=== PATIENT | female | born 1940 | race Caucasian/White ===

== ENCOUNTER 2017-11-25 04:08 | Observation (INO) | payer OTHER ==
--- NOTE | 2017-11-25 04:18 | PDOC ---
Attending Attestation - Resident Resident Name: Imani Pablo - ED Attending Attestation I have performed the following: I have examined & evaluated the patient, The case was reviewed & discussed with the resident, I agree w/resident's findings & plan - HPI HPI: 11/25/17 06:18 Pt was found on the ground by katherine , when her dog began barking wildly after she presumably passed out. Pt didn't eat dinner however she took all her DM meds: levemir; januvia; metformin; glypizide. EMS was called, and when they arrived at the pt's house, they found her glucometer read was 2. Oral glc was given; pt was scooped and brought to ER. Here IV immediately placed and D50 given. Pt woke up. She was also placed on NRB 100% O2 mask. - Physicial Exam PE: 11/25/17 06:23 Agree with resident exam. Pt has no rashes or bruises; abd soft; lungs clear. HR tachy on arrival -with hydration HR came down. - Medical Decision Making 11/25/17 04:42 Blood sugar is 224 at this moment, by bedside glucometer. 11/25/17 06:26 Pt's labs are normal. GLC returned at 36; however that was before the D50 IV; pt 's fingerstick was 224. She is awake and alert and speaking to her . 11/25/17 06:27 Pt has a UTI and we will treat with ceftriaxone IV She will be admitted. Heart Score/ECG Review - Electrocardiogram EKG: Normal - Age Age: >/= 65 - Risk Factors Risk Factors Heart Score: Yes Hx Hypercholesterolemia, Yes Hx Hypertension, Yes Hx Diabetes Based on the list above the patient has:: >/=3 risk factors or Hx atherosclerotic disease - ECG Intrepretation Rhythm: Regular Rhythm - [place]: Normal - ECG Impressions Normal ECG: Yes Bradycardia: Yes
[2017-11-25 04:58] LABS: BASO % 0.6 % (0-2.0); EOS % 3.1 % (0-4.5); HEMATOCRIT 41.4 % (32.4-45.2); HEMOGLOBIN 13.7 GM/dL (10.7-15.3); LYMPH % 38.8 % (8-40); MCH 29.5 pg (25.7-33.7); MCHC 32.9 g/dl (32.0-36.0); MEAN CELL VOLUME 89.5 fl (80-96); MEAN PLT VOLUME 8.2 fl (7.5-11.1); MONO % 8.5 % (3.8-10.2); PLATELET COUNT 244 K/MM3 (134-434); RBC 4.63 M/mm3 (3.60-5.2); RDW 13.7 % (11.6-15.6); WHITE BLOOD COUNT 7.8 K/mm3 (4.0-10.0)
--- NOTE | 2017-11-25 05:03 | PDOC ---
History of Present Illness - General Chief Complaint: Blood Sugar Problem Stated Complaint: DIABETIC SHOCK Time Seen by Provider: 11/25/17 04:15 History Source: Patient Exam Limitations: No Limitations - History of Present Illness Initial Comments: 11/25/17 04:40 77 year old with history of early dementia, HTN, HLD, triple CABG (1998) and DM who presents after being found sitting in couch, unresponsive and "soaked in sweat" by her . The patient's glucose was 2 as checked by her . Upon EMS arrival glucose was at 22. Patient takes 28 units of insulin at 2300 every night. Today the patient only ate breakfast around 0900 but had not eaten anything the entire day, yet still took her nightly insulin. Denies any recent travel or long flights. Denies recent fever or sick contacts. Denies nausea, vomiting, diarrhea or constipation. The patient denies any current chest pain, shortness of breath, abdominal pain. The patient takes plavix and ASA but no other anti-coagulants. En route to the ED, oral glucose was given to the patient. PMHX: as in HPI PSHX: as in HPI Meds: see below Allergies: none Tob: none Etoh: none Rec Drugs: none PCP: Constanza Linares Past History - Past Medical History Allergies/Adverse Reactions: Allergies Allergy/AdvReac Type Severity Reaction Status Date / Time No Known Allergies Allergy Verified 11/25/17 04:27 Home Medications: Ambulatory Orders Aspirin [Aspirin EC] 81 mg PO DAILY 08/01/14 Brimonidine Tartrate/Timolol [Combigan Eye Drops] 5 ml OP BID 08/01/14 Cephalexin Monohydrate [Keflex -] 500 mg PO BID #14 capsule 08/01/14 Glipizide [Glipizide ER] 10 mg PO BID 08/01/14 Irbesartan 150 mg PO DAILY 08/01/14 Metformin HCl [Metformin HCl ER] 1,000 mg PO BID 08/01/14 Metoprolol Succinate [Toprol Xl -] 50 mg PO DAILY 08/01/14 Nitroglycerin Sublingual [Nitrostat -] 0.4 mg SL PRN 08/01/14 Simvastatin [Zocor -] 40 mg PO HS 08/01/14 Sitagliptin Phosphate [Januvia] 100 mg PO DAILY 08/01/14 Acetaminophen W/ Codeine #3 [Tylenol # 3 -] 1 tab PO Q6H PRN #10 tablet Diabetes: Yes HTN: Yes Hypercholesterolemia: Yes - Suicide/Smoking/Psychosocial Hx Smoking History: Unknown if ever smoked Have you smoked in the past 12 months: No Information on smoking cessation initiated: No Hx Alcohol Use: No Drug/Substance Use Hx: No Substance Use Type: None *Physical Exam - Vital Signs Last Vital Signs Temp Pulse Resp BP Pulse Ox 95.4 F L 52 L 22 H 98/46 L 99 11/25/17 04:10 11/25/17 04:10 11/25/17 04:10 11/25/17 04:10 11/25/17 04:10 Heart Score/ECG Review - History History: Moderately suspicious - Electrocardiogram EKG: Normal - Age Age: >/= 65 - Risk Factors Risk Factors Heart Score: Yes Hx Hypercholesterolemia, Yes Hx Hypertension, Yes Hx Diabetes Based on the list above the patient has:: >/=3 risk factors or Hx atherosclerotic disease - Troponin Troponin: </= normal limit - Score Heart Score - Total: 5 ED Treatment Course - LABORATORY CBC & Chemistry Diagram: 11/25/17 04:40 11/25/17 04:40 Medical Decision Making - Medical Decision Making 77 year old with history of early dementia, HTN, HLD, triple CABG (1998) and DM who presents after being found sitting in couch, unresponsive and "soaked in sweat" by her . The patient's glucose was 2 as checked by her . Upon EMS arrival glucose was at 22. Patient takes 28 units of insulin at 2300 every night. Today the patient only ate breakfast around 0900 but had not eaten anything the entire day, yet still took her nightly insulin. DDX including but not limited to: ACS vs hypoglycemia vs CVA/TIA vs PNA vs UTI vs electrolyte abnormalities W/U: - Head CT - cbc, cmp, trop, PT/INR, PTT, BNP - CXR - EKG TX: - D50 - NS Scores: Heart: 5 ED Course: D50 administered upon arrival. EKG: sinus marie rhythm HR 55, no interval abnormalities, narrow QRS, ST and T wave segments and morphology normal. No T wave abnormalities. QTc at 470 11/25/17 05:03 Repeat glucose at 228 Patient at baseline much improved as compared to initial presentation. Mentating and holding normal conversation. UA: + nitrites 1gm Rocephin given Patient with significant cardiac history and heart score of 5 and with unknown cause of syncope, patient will need further treatment and evaluating. Trop: negative. Medicine team contacted for admission to tele obs for syncope r/o ACS 11/25/17 06:26 11/25/17 06:27 *DC/Admit/Observation/Transfer - Discharge Dispostion Condition at time of disposition: Guarded - Referrals Referrals: ON STAFF,NOT [Primary Care Provider] - - Patient Instructions - Post Discharge Activity
[2017-11-25 05:34] LABS: INR 0.96 (0.83-1.09); PROTHROMBIN TIME (PATIENT) 11.3 SEC (9.7-13.0)
[2017-11-25 05:51] LABS: ALBUMIN 3.9 g/dl (3.4-5.0); ALK PHOS 110 U/L (45-117); ANION GAP 9 MMOL/L (8-16); BILIRUBIN,TOTAL 0.8 mg/dL (0.2-1); BLOOD UREA NITROGEN 19 mg/dL (7-18); CALCIUM 9.6 mg/dL (8.5-10.1); CHLORIDE 107 mmol/L (98-107); CO2 27 mmol/L (21-32); SGOT/AST 25 U/L (15-37); SGPT/ALT 28 U/L (13-61); SODIUM 143 mmol/L (136-145); TOT PROT 7.6 g/dl (6.4-8.2)
[2017-11-25 05:53] LABS: GLUCOSE,RANDOM 36 mg/dL (74-106)
[2017-11-25] MEDS ORDERED: SODIUM CHLORIDE 1,000 ML IV SCH (06:00)
[2017-11-25 06:05] LABS: URINE APPEARANCE CLEAR; URINE BILIRUBIN NEGATIVE (<2.0 mg/dL); URINE COLOR LTYELLOW; URINE GLUCOSE (UA) 1+ (NEGATIVE); URINE KETONE NEGATIVE (NEGATIVE); URINE LEUK ESTERASE TRACE (NEGATIVE); URINE NITRITE POSITIVE (NEGATIVE); URINE PROTEIN NEGATIVE (NEGATIVE); URINE UROBILINOGEN NEGATIVE mg/dL (0.2-1.0)
[2017-11-25] MEDS ORDERED: CEFTRIAXONE 1,000 MG in DEXTROSE 5%-WATER - 50 ML IVPB ONE (06:15)
[2017-11-25 06:28] LABS: EPI CELLS RARE /HPF (FEW); URINE BACTERIA MODERATE /hpf (NONE SEEN); URINE HYALINE CAST 6 /lpf; URINE MUCUS RARE
[2017-11-25] MEDS ORDERED: CEFTRIAXONE 1 GM/50 ML BAG ONE (06:56)
--- NOTE | 2017-11-25 08:02 | HP ---
CHIEF COMPLAINT: PCP: Dr. Vijay Apodaca HISTORY OF PRESENT ILLNESS: Patient is a 77 year old female was brought to the ED via EMS accompanied with her after she was found unresponsive this morning at 3am. As per the , she was apparently well until 11:30 pm last night when she went to bed. In the morning at 3am, he heard dogs barking, went in to the living room, saw his unresponsive in the couch. He checked her sugar via Dexcom (sugar sensor) and it was 2. On EMS arrival, her sugar was 22, was given oral glucose on the way to the ED. Her Sugar was found to be 36 mg/dl in the ED. As per the patient, she took her medications yesterday (Levemir 28 U, Metformin 1000 mg BID, Glipizide 10mg PO BID), only had breakfast in the morning and a small piece of apple pie for dinner at 9pm. Patient states her sugar at 11:30 pm last night was 239 mg/dl, usually ranges between 130's -200's. Never had hypoglycemic episodes in the past. Was diagnosed to have DM-II 3 yrs ago, hasn' t changed any medications recently. Denies chest pain, sob, cough, palpitation, abdominal pain, nausea, vomiting, headache, seizure, tingling, numbness or any focal neurological deficits. Has been taking Namenda and Donepezil for memory loss. But she is still independent, able to cook and pay her bills. Bowel/Bladder habit normal. No urinary symptoms. Sleep normal. Decreased PO intake since few days. ER course was notable for: (1) Afebrile, Bradycardic to 52 bpm, no leukocytosis, RBS 36 mg/dl (2) EKG: NSR, bradycardia (3) D50, IVF Recent Travel: None PAST MEDICAL HISTORY: Hypertension, Hyperlipidemia, DM (Dx 3 yrs ago), Memory loss, Triple by pass in 1998 PAST SURGICAL HISTORY: As mentioned above. Social History: Smoking: Denies Alcohol: Occasional, last drink a week ago (1 drink) Drugs: Denies Family History: Father of [place] at [place] 40 from [place]; Mother- . 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 Allergies No Known Allergies Allergy (Verified 11/25/17 04:27) HOME MEDICATIONS: Home Medications Medication Instructions Recorded Aspirin [Aspirin EC] 81 mg PO DAILY 08/01/14 Brimonidine Tartrate/Timolol 5 ml OP BID 08/01/14 [Combigan Eye Drops] Glipizide [Glipizide ER] 10 mg PO BID 08/01/14 Irbesartan 150 mg PO DAILY 08/01/14 Metformin HCl [Metformin HCl ER] 1,000 mg PO BID 08/01/14 Metoprolol Succinate [Toprol Xl -] 50 mg PO DAILY 08/01/14 Nitroglycerin Sublingual 0.4 mg SL PRN 08/01/14 [Nitrostat -] Simvastatin [Zocor -] 40 mg PO HS 08/01/14 Sitagliptin Phosphate [Januvia] 100 mg PO DAILY 08/01/14 Acetaminophen W/ Codeine #3 1 tab PO Q6H PRN #10 tablet 10/10/14 [Tylenol # 3 -] REVIEW OF SYSTEMS CONSTITUTIONAL: Absent: fever, chills, diaphoresis, generalized weakness, malaise, loss of appetite, weight change HEENT: Absent: rhinorrhea, nasal congestion, throat pain, throat swelling, difficulty swallowing, mouth swelling, ear pain, eye pain, visual changes CARDIOVASCULAR: Absent: chest pain, syncope, palpitations, irregular heart rate, lightheadedness , peripheral edema RESPIRATORY: Absent: cough, shortness of breath, dyspnea with exertion, orthopnea, wheezing, stridor, hemoptysis GASTROINTESTINAL: Absent: abdominal pain, abdominal distension, nausea, vomiting, diarrhea, constipation, melena, hematochezia GENITOURINARY: Absent: dysuria, frequency, urgency, hesitancy, hematuria, flank pain, genital pain MUSCULOSKELETAL: Absent: myalgia, arthralgia, joint swelling, back pain, neck pain SKIN: Absent: rash, itching, pallor HEMATOLOGIC/IMMUNOLOGIC: Absent: easy bleeding, easy bruising, lymphadenopathy, frequent infections ENDOCRINE: Absent: unexplained weight gain, unexplained weight loss, heat intolerance, cold intolerance NEUROLOGIC: Present: Altered mental status Absent: headache, focal weakness or paresthesias, dizziness, unsteady gait, seizure, bladder or bowel incontinence PSYCHIATRIC: Absent: anxiety, depression, suicidal or homicidal ideation, hallucinations. PHYSICAL EXAMINATION Vital Signs - 24 hr 11/25/17 04:10 Temperature 95.4 F L Pulse Rate 52 L Respiratory 22 H Rate Blood Pressure 98/46 L O2 Sat by Pulse 99 Oximetry (%) GENERAL: Elderly female, lying comfortably in bed, Awake, alert, and oriented to place, person (not oriented to year) in no acute distress. HEAD: Normal with no signs of trauma. EYES: EOM intact, no pallor or icterus. EARS, NOSE, THROAT: Ears normal. Moist mucous membranes. NECK: Supple. LUNGS: Breath sounds equal, clear to auscultation bilaterally. No wheezes, and no crackles. No accessory muscle use. HEART: Regular rate and rhythm, normal S1 and S2 without murmur. ABDOMEN: Soft, nontender, no organomegaly. MUSCULOSKELETAL: Normal range of motion at all joints. No bony deformities or tenderness. No CVA tenderness. UPPER EXTREMITIES: 2+ pulses, warm, well-perfused. No cyanosis. No clubbing. No peripheral edema. LOWER EXTREMITIES: scar on the left le (likely from previous bypass surgery) 2+ pulses, warm, well-perfused. No calf tenderness. No peripheral edema. NEUROLOGICAL: No facial droop, power 5/5 in all extremities. Cranial nerves II- XII intact. Normal speech. Gait not observed. PSYCHIATRIC: Cooperative. Good eye contact. Appropriate mood and affect. SKIN: Warm, dry, normal turgor, no rashes or lesions noted, normal capillary refill. Laboratory Results - last 24 hr 11/25/17 11/25/17 11/25/17 04:40 04:40 04:40 WBC 7.8 RBC 4.63 Hgb 13.7 Hct 41.4 MCV 89.5 MCH 29.5 MCHC 32.9 RDW 13.7 Plt Count 244 MPV 8.2 Absolute Neuts (auto) 3.8 Neutrophils % 49.0 Lymphocytes % 38.8 Monocytes % 8.5 Eosinophils % 3.1 Basophils % 0.6 Nucleated RBC % 0 PT with INR 11.30 INR 0.96 PTT (Actin FS) 30.7 Sodium Potassium Chloride Carbon Dioxide Anion Gap BUN Creatinine Creat Clearance w eGFR POC Glucometer Random Glucose Calcium Total Bilirubin AST ALT Alkaline Phosphatase Creatine Kinase Troponin I B-Natriuretic Peptide Total Protein Albumin Urine Color Urine Appearance Urine pH Ur Specific Oliver Urine Protein Urine Glucose (UA) Urine Ketones Urine Blood Urine Nitrite Urine Bilirubin Urine Urobilinogen Ur Leukocyte Esterase Urine WBC (Auto) Urine RBC (Auto) Ur Epithelial Cells Urine Bacteria Hyaline Casts Urine Mucus Blood Type Antibody Screen 11/25/17 11/25/17 11/25/17 04:40 04:40 04:41 WBC RBC Hgb Hct MCV MCH MCHC RDW Plt Count MPV Absolute Neuts (auto) Neutrophils % Lymphocytes % Monocytes % Eosinophils % Basophils % Nucleated RBC % PT with INR INR PTT (Actin FS) Sodium 143 Potassium 4.0 Chloride 107 Carbon Dioxide 27 Anion Gap 9 BUN 19 H Creatinine 1.0 Creat Clearance w eGFR 53.48 POC Glucometer [phone] Random Glucose 36 L* Calcium 9.6 Total Bilirubin 0.8 AST 25 ALT 28 Alkaline Phosphatase 110 Creatine Kinase 50 Troponin I < 0.02 B-Natriuretic Peptide Total Protein 7.6 Albumin 3.9 Urine Color Urine Appearance Urine pH Ur Specific Oliver Urine Protein Urine Glucose (UA) Urine Ketones Urine Blood Urine Nitrite Urine Bilirubin Urine Urobilinogen Ur Leukocyte Esterase Urine WBC (Auto) Urine RBC (Auto) Ur Epithelial Cells Urine Bacteria Hyaline Casts Urine Mucus Blood Type O POSITIVE Antibody Screen Negative 11/25/17 11/25/17 05:31 07:28 WBC RBC Hgb Hct MCV MCH MCHC RDW Plt Count MPV Absolute Neuts (auto) Neutrophils % Lymphocytes % Monocytes % Eosinophils % Basophils % Nucleated RBC % PT with INR INR PTT (Actin FS) Sodium Potassium Chloride Carbon Dioxide Anion Gap BUN Creatinine Creat Clearance w eGFR POC Glucometer Random Glucose Calcium Total Bilirubin AST ALT Alkaline Phosphatase Creatine Kinase Troponin I B-Natriuretic Peptide 583.4 H Total Protein Albumin Urine Color Ltyellow Urine Appearance Clear Urine pH 5.0 Ur Specific Oliver 1.013 Urine Protein Negative Urine Glucose (UA) 1+ H Urine Ketones Negative Urine Blood Negative Urine Nitrite Positive Urine Bilirubin Negative Urine Urobilinogen Negative Ur Leukocyte Esterase Trace Urine WBC (Auto) 3 Urine RBC (Auto) <1 Ur Epithelial Cells Rare Urine Bacteria Moderate Hyaline Casts 6 Urine Mucus Rare Blood Type Antibody Screen ASSESSMENT/PLAN: Patient is a 77 year old female with significant past medical history of Hypertension, Hyperlipidemia, DM (Dx 3 yrs ago), Memory loss, Triple by pass in 1998 admitted for evaluation of altered mental status secondary to hypoglycemia. # Altered mental status likely secondary to hypoglycemia Patient on Levemir and oral hypoglycemic drugs (compliant), had poor oral intake x 1 day, was found to have sugar of 2 AMS resolved completely after she was treated with oral glucose and IV Dextrose. Presyncope- unlikely cardiac in origin. EKG NSR bradycardia (do not have previous EKG to compare) (troponin x 1 negative, will do another set of troponin) On arrival, she was afebrile, hemodynamically stable Admitted in Tele for continuous cardiac monitoring (check for arrythmias) A1c ordered, result pending Hold Metformin, Glipizide and Levemir for now. Finger stick Q2H followed by Q4H Insulin sliding scale-cover with Insulin only if Sugar is > 200 mg/dl Watch for hypoglycemic episodes Educated about diabetic diet. Recommended to see an Janitorial Cleaner and a business case analyst Dr. Ingram consult requested. # Hypertension-controlled Continue Metoprolol 50mg PO daily Changed Irbesartan (NF) 75 mg to Losartan 25 mg PO daily (confirmed dose with the pharmacy) # CAD s/p Triple bypass Continue Aspirin 81mg # Memory loss Continue Namenda 28 mg PO Daily and Donepezil 10mg PO daily # HLD Continue Atorvastatin 20 mg PO Daily (Takes Simvastatin 40mg(NF) at home) # FEN Not on IV fluids, tolerating PO Electrolytes WNL Diabetic diet # Prophylaxis For DVT: On Heparin 5000 IU sq TID For GI: Not indicated # Code Status: Full Code # Dispo: Admitted in Tele/obs. If sugar improves, there is a possibility of being discharged tomorrow. Illness, Investigation and Plan of care explained to the patient and her . They verbalized understanding. Case discussed with Dr. White. Visit type - Emergency Visit Emergency Visit: Yes ED Registration Date: 11/25/17 Care time: The patient presented to the Emergency Department on the above date and was hospitalized for further evaluation of their emergent condition. - New Patient This patient is new to me today: Yes Date on this admission: 11/25/17 - Critical Care Critical Care patient: No
[2017-11-25] MEDS ORDERED: NITROGLYCERIN SUBLINGUAL 1/150 0.4 MG TAB SL SCH (08:30)
[2017-11-25] MEDS ORDERED: sitaGLIPtin PHOSPHATE 100 MG TABLET (FP) PO SCH (10:00)
[2017-11-25] MEDS ORDERED: ASPIRIN COATED 81 MG TABLET.EC PO SCH (10:00)
[2017-11-25] MEDS ORDERED: PATIENT'S OWN MEDICATION (NON-FORMULARY) (Memantine Hcl [Namenda Xr] 28 MG) PO SCH (10:00)
[2017-11-25] MEDS ORDERED: LOSARTAN POTASSIUM 25 MG TABLET PO SCH (10:00)
[2017-11-25] MEDS ORDERED: PATIENT'S OWN MEDICATION (NON-FORMULARY) (Brimonidine Tartrate/Timolol [Combigan 0.2%-0.5% OP SCH (10:00)
[2017-11-25] MEDS ORDERED: PATIENT'S OWN MEDICATION (NON-FORMULARY) (Irbesartan [Irbesartan] 150 MG) PO SCH (10:00)
[2017-11-25] MEDS: HEPARIN NA (PORCINE) 5,000 UNITS/ML 1ML VIAL SQ SCH ×3 (10:20→21:58)
[2017-11-25] MEDS: ASPIRIN COATED 81 MG TABLET.EC PO SCH (10:20)
[2017-11-25] MEDS ORDERED: ASPIRIN COATED 81 MG TABLET.EC ONE (10:50)
[2017-11-25] MEDS ORDERED: HEPARIN NA (PORCINE) 5,000 UNITS/ML 1ML VIAL ONE ×2 (10:50→15:16)
[2017-11-25] MEDS: INSULIN SLIDING SCALE (NOVOLOG) 1 VIAL SQ SCH ×3 (11:00→21:58)
[2017-11-25] MEDS ORDERED: IBUPROFEN 400 MG TABLET (FP) PO ONE (11:58)
--- NOTE | 2017-11-25 12:34 | PN ---
Teaching Attending Note Name of Resident: Sulma Moreira ATTENDING PHYSICIAN STATEMENT Time of evaluation: 9:30 AM I saw and evaluated the patient. I reviewed the resident's note and discussed the case with the resident. I agree with the resident's findings and plan as documented with exceptions below. SUBJECTIVE: 77 yof with PMhx of IDDM,(no recent changes in meds), s/p subcutaneous glucose sensor 3 weeks ago, also CAD s/p CABG 1998, HTN,HLD was found unresponsive by her around 3 AM, with glucose sensor reading 0-2, EMS was called, patient was given oral glucose, brought to ED, Blood glucose 38 s/p D50 with repeat blood glucose 228. Patient gradually woke up and was at her baseline shortly after receiving dextrose in the ED, has been asymptomatic since. She reports taking all her DM meds, including Levemir, Glyburide,metformin, januvia yesterday, had breakfast, but no PO intake since all day, though did take her evening diabetes meds. Denies any fevers, chills, abdominal pain, urinary symptoms, diarrhea, recent URI like illness, decreased PO intake prior to yesterday. No similar prior episodes. Has been stable on her DM meds for years. However reports her blood glucose readings have been erratic ranging from 50s to 300s. Currently awake, appropriate, at bedside, Patient recalls hearing the dog barking, then being in a 'haze', but next thing she remembers was being in the ED. 12 point ROS done, neg except above. OBJECTIVE: Vital Signs Period Temp Pulse Resp BP Sys/Barlow Pulse Ox Last 24 Hr 95.4 F-97.5 F 52-65 18-22 98-161/46-74 99-99 Intake & Output 11/22/17 11/23/17 11/24/17 11/25/17 23:59 23:59 23:59 23:59 Weight 175 lb GENERAL: Awake, alert, and fully oriented, in no acute distress. HEAD: Normal with no signs of trauma. EYES: Pupils equal, round and reactive to light, extraocular movements intact, sclera anicteric, conjunctiva clear. No lid lag. EARS, NOSE, THROAT: Ears normal, nares patent, oropharynx clear without exudates. Moist mucous membranes. NECK: soft, supple,no JVD, no neck tendernesss LUNGS: Breath sounds equal, clear to auscultation bilaterally. No wheezes, and no crackles. No accessory muscle use. HEART: S1S2 regular ABDOMEN: Soft, nontender, not distended, normoactive bowel sounds, no guarding, no rebound, no masses. No hepatomegaly or splenomegaly appreciated. MUSCULOSKELETAL: Normal range of motion at all joints. No bony deformities or tenderness. No CVA tenderness.No spinal tenderness or limitation of ROM noted UPPER EXTREMITIES: 2+ pulses, warm, well-perfused. No cyanosis. No clubbing. No peripheral edema. LOWER EXTREMITIES: 2+ pulses, warm, well-perfused. No calf tenderness. No peripheral edema. NEUROLOGICAL: Cranial nerves II-XII intact. Normal speech. Gait deferred, AAOX3 , PERRL, EOMI, power 5/5, sensation intact symmetric to light touch PSYCHIATRIC: Cooperative. Good eye contact. Appropriate mood and affect. SKIN: Warm, dry, normal turgor, no rashes or lesions noted, normal capillary refill. Home Medications Medication Instructions Recorded Aspirin [Aspirin EC] 81 mg PO DAILY 08/01/14 Brimonidine Tartrate/Timolol 5 ml OP BID 08/01/14 [Combigan Eye Drops] Glipizide [Glipizide ER] 10 mg PO BID 08/01/14 Metformin HCl [Metformin HCl ER] 1,000 mg PO BID 08/01/14 Metoprolol Succinate [Toprol Xl -] 50 mg PO DAILY 08/01/14 Nitroglycerin Sublingual 0.4 mg SL PRN 08/01/14 [Nitrostat -] Simvastatin [Zocor -] 40 mg PO HS 08/01/14 Sitagliptin Phosphate [Januvia] 100 mg PO DAILY 08/01/14 Acetaminophen W/ Codeine #3 1 tab PO Q6H PRN #10 tablet 10/10/14 [Tylenol # 3 -] Aspirin Coated [Ecotrin -] 81 mg PO DAILY 11/25/17 Donepezil HCl 10 mg PO DAILY 11/25/17 Furosemide 40 mg PO DAILY 11/25/17 Insulin (Levemir) [Levemir Vial] 28 unit SQ DAILY 11/25/17 Irbesartan 75 mg PO DAILY 11/25/17 Memantine HCl [Namenda Xr] 28 mg PO DAILY 11/25/17 Active Medications Aspirin (Ecotrin -) 81 mg PO DAILY [facility] Last Admin: 11/25/17 10:20 Dose: 81 mg Atorvastatin Calcium (Lipitor -) 20 mg PO HS [facility] Donepezil HCl (Aricept -) 10 mg PO DAILY [facility] Heparin Sodium (Porcine) (Heparin -) 5,000 unit SQ TID [facility] Last Admin: 11/25/17 10:20 Dose: 5,000 unit Insulin Aspart (Novolog Vial Sliding Scale -) 1 vial SQ ACHS [facility]; Protocol Last Admin: 11/25/17 11:00 Dose: Not Given Losartan Potassium (Cozaar -) 25 mg PO DAILY [facility] Metoprolol Succinate (Toprol Xl -) 50 mg PO DAILY [facility] Last Admin: 11/25/17 10:20 Dose: 50 mg Nitroglycerin (Nitrostat -) 0.4 mg SL PRN [facility] Non-Formulary Medication (Brimonidine Tartrate/Timolol [Combigan 0.2%-0.5% Eye Drops]) 5 ml OP BID [facility] Non-Formulary Medication (Memantine Hcl [Namenda Xr]) 28 mg PO DAILY [facility] Laboratory Results - last 24 hr 11/25/17 11/25/17 11/25/17 04:40 04:40 04:40 WBC 7.8 RBC 4.63 Hgb 13.7 Hct 41.4 MCV 89.5 MCH 29.5 MCHC 32.9 RDW 13.7 Plt Count 244 MPV 8.2 Absolute Neuts (auto) 3.8 Neutrophils % 49.0 Lymphocytes % 38.8 Monocytes % 8.5 Eosinophils % 3.1 Basophils % 0.6 Nucleated RBC % 0 PT with INR 11.30 INR 0.96 PTT (Actin FS) 30.7 Sodium Potassium Chloride Carbon Dioxide Anion Gap BUN Creatinine Creat Clearance w eGFR POC Glucometer Random Glucose Hemoglobin A1c % Calcium Total Bilirubin AST ALT Alkaline Phosphatase Creatine Kinase Troponin I B-Natriuretic Peptide Total Protein Albumin Urine Color Urine Appearance Urine pH Ur Specific Norris Urine Protein Urine Glucose (UA) Urine Ketones Urine Blood Urine Nitrite Urine Bilirubin Urine Urobilinogen Ur Leukocyte Esterase Urine WBC (Auto) Urine RBC (Auto) Ur Epithelial Cells Urine Bacteria Hyaline Casts Urine Mucus Blood Type Antibody Screen 11/25/17 11/25/17 11/25/17 04:40 04:40 04:41 WBC RBC Hgb Hct MCV MCH MCHC RDW Plt Count MPV Absolute Neuts (auto) Neutrophils % Lymphocytes % Monocytes % Eosinophils % Basophils % Nucleated RBC % PT with INR INR PTT (Actin FS) Sodium 143 Potassium 4.0 Chloride 107 Carbon Dioxide 27 Anion Gap 9 BUN 19 H Creatinine 1.0 Creat Clearance w eGFR 53.48 POC Glucometer 228.08336 Random Glucose 36 L* Hemoglobin A1c % Calcium 9.6 Total Bilirubin 0.8 AST 25 ALT 28 Alkaline Phosphatase 110 Creatine Kinase 50 Troponin I < 0.02 B-Natriuretic Peptide Total Protein 7.6 Albumin 3.9 Urine Color Urine Appearance Urine pH Ur Specific Norris Urine Protein Urine Glucose (UA) Urine Ketones Urine Blood Urine Nitrite Urine Bilirubin Urine Urobilinogen Ur Leukocyte Esterase Urine WBC (Auto) Urine RBC (Auto) Ur Epithelial Cells Urine Bacteria Hyaline Casts Urine Mucus Blood Type O POSITIVE Antibody Screen Negative 11/25/17 11/25/17 11/25/17 05:31 07:28 09:29 WBC RBC Hgb Hct MCV MCH MCHC RDW Plt Count MPV Absolute Neuts (auto) Neutrophils % Lymphocytes % Monocytes % Eosinophils % Basophils % Nucleated RBC % PT with INR INR PTT (Actin FS) Sodium Potassium Chloride Carbon Dioxide Anion Gap BUN Creatinine Creat Clearance w eGFR POC Glucometer 92.76912 Random Glucose Hemoglobin A1c % Calcium Total Bilirubin AST ALT Alkaline Phosphatase Creatine Kinase Troponin I B-Natriuretic Peptide 583.4 H Total Protein Albumin Urine Color Ltyellow Urine Appearance Clear Urine pH 5.0 Ur Specific Norris 1.013 Urine Protein Negative Urine Glucose (UA) 1+ H Urine Ketones Negative Urine Blood Negative Urine Nitrite Positive Urine Bilirubin Negative Urine Urobilinogen Negative Ur Leukocyte Esterase Trace Urine WBC (Auto) 3 Urine RBC (Auto) <1 Ur Epithelial Cells Rare Urine Bacteria Moderate Hyaline Casts 6 Urine Mucus Rare Blood Type Antibody Screen 11/25/17 11/25/17 11/25/17 10:40 10:40 10:40 WBC RBC Hgb Hct MCV MCH MCHC RDW Plt Count MPV Absolute Neuts (auto) Neutrophils % Lymphocytes % Monocytes % Eosinophils % Basophils % Nucleated RBC % PT with INR INR PTT (Actin FS) Sodium Potassium Chloride Carbon Dioxide Anion Gap BUN Creatinine Creat Clearance w eGFR POC Glucometer Random Glucose 131 H Hemoglobin A1c % 8.0 H Calcium Total Bilirubin AST ALT Alkaline Phosphatase Creatine Kinase Troponin I 0.02 B-Natriuretic Peptide Total Protein Albumin Urine Color Urine Appearance Urine pH Ur Specific Norris Urine Protein Urine Glucose (UA) Urine Ketones Urine Blood Urine Nitrite Urine Bilirubin Urine Urobilinogen Ur Leukocyte Esterase Urine WBC (Auto) Urine RBC (Auto) Ur Epithelial Cells Urine Bacteria Hyaline Casts Urine Mucus Blood Type Antibody Screen CT brain no acute process CT C-spine degenerative changes, no acute process EKG Sinus marie, T inversion in V1-V2, no prior for comparison CXR - sternal sutures, no acute process ASSESSMENT AND PLAN: 77 yof with PMhx of IDDM,(no recent changes in meds), s/p subcutaneous glucose sensor 3 weeks ago, also CAD s/p CABG 1998, HTN,HLD brought in with severe hypoglycemia -Severe hypoglycemia with unresponsiveness -IDDM, 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 Close glucose checks. ISS for now to start at 200 Endocrine consult, as patient with no prior follow up and gives recent h/o brittle diabetes. Hypoglycemia education. Will provide glucagon on d/c with diabetic education. COntinue home ARB/metoprolol/ASA/statin [id number] Dispo - admit to obs, d/c in 24 hours if no new concerns. Plan discussed with patient and at bedside in detail, all questions answered. Total admit time 55 min.
[2017-11-25] MEDS: LOSARTAN POTASSIUM 25 MG TABLET PO SCH (14:05)
--- NOTE | 2017-11-25 16:04 | CONSULT ---
Consult Consult Specialty:: Endocrinology Referred by:: Sulma Canales MD Reason for Consultation:: Hypoglycemia - History of Present Illness Chief Complaint: Hypoglycemia, AMS History of Present Illness: This is a 77 year old female with h/o T2 DM for around 10 years, on Insulin for 3, HTN, memory impairment who was brought to the ED via EMS accompanied by her after she was found unresponsive this morning at 3am. As per the , she was apparently well until 11:30 pm last night when she went to bed. In the morning at 3am, he heard dogs barking, went in to the living room, saw his unresponsive in the couch. Freestyle gi glucose monitoring pt had on gave a reading of 2. On EMS arrival, her sugar was 22, was given sublingual glucose on the way to the ED. Her Sugar was found to be 36 mg/dl in the ED. As per the patient, she took her medications yesterday (Levemir 28 U, Metformin 1000 mg BID, Glipizide XL 10mg PO BID), only had breakfast in the morning and a small piece of apple pie for dinner at 9pm. Patient states her sugar at 11:30 pm last night was 239 mg/dl, usually ranges between 130's -200's. Review her glucometer shows two readings of "low". Pt says she as symptomatic during these episodes but had no AMS. Currently denies any complaints. Her gives all her med. No visual symptoms. Has paresthesia of feet she atributes to vascular problem she has. - History Source History Provided By: Patient, Family Member, Medical Record - Past Medical History Endocrine: Yes: Diabetes Mellitus - Alcohol/Substance Use Hx Alcohol Use: No - Smoking History Smoking history: Unknown if ever smoked Have you smoked in the past 12 months: No Home Medications - Allergies Allergies/Adverse Reactions: Allergies Allergy/AdvReac Type Severity Reaction Status Date / Time No Known Allergies Allergy Verified 11/25/17 04:27 - Home Medications Home Medications: Ambulatory Orders Aspirin [Aspirin EC] 81 mg PO DAILY 08/01/14 Brimonidine Tartrate/Timolol [Combigan Eye Drops] 5 ml OP BID 08/01/14 Glipizide [Glipizide ER] 10 mg PO BID 08/01/14 Metformin HCl [Metformin HCl ER] 1,000 mg PO BID 08/01/14 Metoprolol Succinate [Toprol Xl -] 50 mg PO DAILY 08/01/14 Nitroglycerin Sublingual [Nitrostat -] 0.4 mg SL PRN 08/01/14 Simvastatin [Zocor -] 40 mg PO HS 08/01/14 Sitagliptin Phosphate [Januvia] 100 mg PO DAILY 08/01/14 Acetaminophen W/ Codeine #3 [Tylenol # 3 -] 1 tab PO Q6H PRN #10 tablet Aspirin Coated [Ecotrin -] 81 mg PO DAILY 11/25/17 Donepezil HCl 10 mg PO DAILY 11/25/17 Furosemide 40 mg PO DAILY 11/25/17 Insulin (Levemir) [Levemir Vial] 28 unit SQ DAILY 11/25/17 Irbesartan 75 mg PO DAILY 11/25/17 Memantine HCl [Namenda Xr] 28 mg PO DAILY 11/25/17 Family Disease History - Family Disease History Other Family History: No family h/o DM Review of Systems - Review of Systems Constitutional: reports: No Symptoms Eyes: reports: No Symptoms HENT: reports: No Symptoms Neck: reports: No Symptoms Cardiovascular: reports: No Symptoms Respiratory: reports: No Symptoms Gastrointestinal: reports: No Symptoms Genitourinary: reports: No Symptoms Musculoskeletal: reports: No Symptoms Integumentary: reports: No Symptoms Neurological: reports: Numbness (of feet) Endocrine: reports: No Symptoms Physical Exam Vital Signs: Vital Signs Temperature 97.6 F 11/25/17 15:43 Pulse Rate 66 11/25/17 15:43 Respiratory Rate 18 11/25/17 15:43 Blood Pressure 142/71 11/25/17 15:43 O2 Sat by Pulse Oximetry (%) 99 11/25/17 15:43 Constitutional: Yes: No Distress, Calm Eyes: Yes: Conjunctiva Clear, EOM Intact HENT: Yes: Atraumatic, Normocephalic Neck: Yes: Supple, Trachea Midline Cardiovascular: Yes: Regular Rate and Rhythm Respiratory: Yes: Regular, CTA Bilaterally Gastrointestinal: Yes: Normal Bowel Sounds, Soft Musculoskeletal: Yes: WNL Extremities: Yes: WNL Edema: No Neurological: Yes: Alert, Oriented Labs: CBC, BMP 11/25/17 04:40 11/25/17 10:40 Assessment/Plan AP: Hypoglycemia with unresponsiveness T2DM: HbA1c 8.0 CAD s/p CABG HTN HLD Hold all antidiabetic agents for now BGM Q 4 hrs ISS for now to start at 200 Discussed diet/exercise. Discussed need to eat on time and not to skip meals to prevent further episodes of hypoglycemia D/C Glipizide ER Nutrition consult Discussed use of Glucagon injection which is to be administered if pt lost consciousness in the future Will F/U
--- NOTE | 2017-11-25 18:02 | EKG ---
Test Reason : Blood Pressure : / mmHG Vent. Rate : 055 BPM Atrial Rate : 055 BPM P-R Int : 190 ms QRS Dur : 088 ms QT Int : 492 ms P-R-T Axes : 065 049 077 degrees QTc Int : 470 ms SINUS BRADYCARDIA OTHERWISE NORMAL ECG WHEN COMPARED WITH ECG OF 30-MAR-2000 00:38, NO SIGNIFICANT CHANGE WAS FOUND Confirmed by ALEX BOTELLO MD ([id number]) on 11/25/2017 6:02:16 PM Referred By: Confirmed By:ALEX BOTELLO MD
[2017-11-25] MEDS ORDERED: ATORVASTATIN CA 20 MG TABLET (FP) PO SCH (22:00)
[2017-11-25] MEDS: BRIMONIDINE TARTRATE 0.2% OPHTHALMIC 5 ML BOTTLE OD SCH (23:03)
[2017-11-25] MEDS: TIMOLOL 0.5% OPHTHALMIC SOL 5 ML BOTTLE OD SCH (23:03)
[2017-11-25 23:38] VITALS: BMI 29.0
[2017-11-26] MEDS: HEPARIN NA (PORCINE) 5,000 UNITS/ML 1ML VIAL SQ SCH ×2 (05:41→14:30)
[2017-11-26] MEDS: INSULIN SLIDING SCALE (NOVOLOG) 1 VIAL SQ SCH ×2 (06:15→11:39)
[2017-11-26 06:27] LABS: HEMATOCRIT 36.3 % (32.4-45.2); HEMOGLOBIN 11.6 GM/dL (10.7-15.3); MCH 28.9 pg (25.7-33.7); MCHC 31.9 g/dl (32.0-36.0); MEAN CELL VOLUME 90.5 fl (80-96); MEAN PLT VOLUME 8.1 fl (7.5-11.1); PLATELET COUNT 163 K/MM3 (134-434); RBC 4.01 M/mm3 (3.60-5.2); RDW 13.9 % (11.6-15.6); WHITE BLOOD COUNT 5.4 K/mm3 (4.0-10.0)
[2017-11-26 06:59] LABS: ANION GAP 7 MMOL/L (8-16); BLOOD UREA NITROGEN 16 mg/dL (7-18); CALCIUM 8.2 mg/dL (8.5-10.1); CHLORIDE 108 mmol/L (98-107); CHOLESTEROL 112 mg/dL (50-200); CO2 26 mmol/L (21-32); CREATININE 1.1 mg/dL (0.55-1.3); GLUCOSE,RANDOM 152 mg/dL (74-106); HDL CHOLESTEROL 34 mg/dL (40-60); MAGNESIUM 1.7 mg/dL (1.8-2.4); PHOSPHOROUS 3.9 mg/dL (2.5-4.9); POTASSIUM 4.5 mmol/L (3.5-5.1); SODIUM 141 mmol/L (136-145); TRIGLYCERIDES 235 mg/dL (0-150)
[2017-11-26] MEDS ORDERED: CEFTRIAXONE 1 GM in DEXTROSE 5%-WATER - 50 ML IVPB ONE (09:15)
[2017-11-26] MEDS ORDERED: DEXTROSE 5%-WATER - 50 ML IVPB ONE (09:17)
[2017-11-26] MEDS ORDERED: cefTRIAXone SODIUM 1 GM VIAL ONE (09:17)
[2017-11-26] MEDS: ASPIRIN COATED 81 MG TABLET.EC PO SCH (09:22)
[2017-11-26] MEDS: LOSARTAN POTASSIUM 25 MG TABLET PO SCH (09:22)
--- NOTE | 2017-11-26 11:20 | PN ---
Progress Note (short form) - Note Progress Note: Feels good Denies any complaints Vital Signs Period Temp Pulse Resp BP Sys/Barlow Pulse Ox Last 24 Hr 97.5 F-98.5 F 51-88 18-20 136-146/63-78 96-99 PE: AOx3 Neck: Supple, No JVD HEENT: PERRL, EOMI Lungs: CTA CVS: S1S2 Abd: Benign Ext: No edema Neuro: No focal deficit CMP Sodium 141 mmol/L (136-145) 11/26/17 05:30 Potassium 4.5 mmol/L (3.5-5.1) 11/26/17 05:30 Chloride 108 mmol/L (98-107) H 11/26/17 05:30 Carbon Dioxide 26 mmol/L (21-32) 11/26/17 05:30 Anion Gap 7 MMOL/L (8-16) L 11/26/17 05:30 BUN 16 mg/dL (7-18) 11/26/17 05:30 Creatinine 1.1 mg/dL (0.55-1.3) 11/26/17 05:30 Creat Clearance w eGFR 47.91 (>60) 11/26/17 05:30 POC Glucometer 151 UNITS (80-120) 11/26/17 05:25 Random Glucose 152 mg/dL (74-106) H 11/26/17 05:30 Hemoglobin A1c % 8.0 % (4.2-6.3) H 11/25/17 10:40 Calcium 8.2 mg/dL (8.5-10.1) L 11/26/17 05:30 Phosphorus 3.9 mg/dL (2.5-4.9) 11/26/17 05:30 Magnesium 1.7 mg/dL (1.8-2.4) L 11/26/17 05:30 Total Bilirubin 0.8 mg/dL (0.2-1) 11/25/17 04:40 AST 25 U/L (15-37) 11/25/17 04:40 ALT 28 U/L (13-61) 11/25/17 04:40 Alkaline Phosphatase 110 U/L (45-117) 11/25/17 04:40 Creatine Kinase 50 IU/L (26-192) 11/25/17 04:40 Troponin I 0.02 ng/ml (0.00-0.05) 11/25/17 10:40 B-Natriuretic Peptide 583.4 pg/ml (5-450) H 11/25/17 07:28 Total Protein 7.6 g/dl (6.4-8.2) 11/25/17 04:40 Albumin 3.9 g/dl (3.4-5.0) 11/25/17 04:40 Triglycerides Cancelled 11/26/17 06:00 Cholesterol Cancelled 11/26/17 06:00 Total LDL Cholesterol Cancelled 11/26/17 06:00 HDL Cholesterol Cancelled 11/26/17 06:00 Current Medications Generic Name Dose Route Start Last Admin Trade Name Freq PRN Reason Stop Dose Admin Aspirin 81 mg 11/25/17 10:00 11/26/17 09:22 Ecotrin - PO 81 mg DAILY JM Administration Atorvastatin Calcium 20 mg 11/25/17 22:00 11/25/17 21:58 Lipitor - PO 20 mg HS JM Administration Brimonidine Tartrate 1 drop 11/25/17 22:45 11/25/17 23:03 Alphagan 0.2% - OD 1 drop BID JM Administration Donepezil HCl 10 mg 11/26/17 22:00 Aricept - PO HS JM Heparin Sodium (Porcine) 5,000 unit 11/25/17 09:15 11/26/17 05:41 Heparin - SQ 5,000 unit TID JM Administration Insulin Aspart 1 vial 11/25/17 11:00 11/26/17 06:15 Novolog Vial Sliding Scale - SQ Not Given ACHS [facility] Protocol Losartan Potassium 25 mg 11/25/17 12:07 11/26/17 09:22 Cozaar - PO 25 mg DAILY JM Administration Metoprolol Succinate 50 mg 11/25/17 10:00 11/26/17 11:06 Toprol Xl - PO Not Given DAILY JM Nitroglycerin 0.4 mg 11/25/17 08:30 Nitrostat - SL PRN JM Non-Formulary Medication 28 mg 11/25/17 10:00 Memantine Hcl [Namenda Xr] PO DAILY JM Timolol Maleate 1 drop 11/25/17 22:45 11/25/17 23:03 Timoptic 0.5% OD 1 drop BID JM Administration AP: Hypoglycemia with unresponsiveness T2DM: HbA1c 8.0 CAD s/p CABG HTN HLD FS up to 168 off all meds. Restart Meformin and Januvia and Levemir 10 units tonight if FS remains >160 at home. The same discussed with patient and at bedside. F/u with PCP this week. Pt to call me at [phone] with any questions until she sees her PCP. Discussed need to eat on time and not to skip meals to prevent further episodes of hypoglycemia D/C Glipizide ER for now. If necessary, Glipizide (regular) 5mg BID or TID with meals would be the better option. Discussed use of Glucagon injection which is to be administered if pt lost consciousness in the future Will F/U
[2017-11-26] MEDS ORDERED: PT OWN MED DRAWER 7, Y5N ONE (11:27)
[2017-11-26] MEDS: BRIMONIDINE TARTRATE 0.2% OPHTHALMIC 5 ML BOTTLE OD SCH (11:36)
[2017-11-26] MEDS: TIMOLOL 0.5% OPHTHALMIC SOL 5 ML BOTTLE OD SCH (11:36)
[2017-11-26 11:59] VITALS: BP 137/62; PULSE 57; TEMP 98.1
[2017-11-26] MEDS ORDERED: GLUCAGON 1 MG KIT IM PRN (13:28)
--- NOTE | 2017-11-26 13:55 | DS ---
Physical Exam: SUBJECTIVE: Patient seen and examined, no concerns overnight, uneventful stay. OBJECTIVE: Vital Signs Period Temp Pulse Resp BP Sys/Barlow Pulse Ox Last 24 Hr 97.5 F-98.5 F 51-88 18-20 136-146/62-78 95-99 PHYSICAL EXAM GENERAL: The patient is awake, alert, and fully oriented, in no acute distress. HEAD: Normal with no signs of trauma. EYES: PERRL, extraocular movements intact, sclera anicteric, conjunctiva clear. ENT: Ears normal, nares patent, oropharynx clear without exudates, moist mucous membranes. NECK: Trachea midline, full range of motion, supple. LUNGS: Breath sounds equal, clear to auscultation bilaterally, no wheezes, no crackles, no accessory muscle use. HEART: S1S2 regular rate rhythm ABDOMEN: Soft, nontender, nondistended, normoactive bowel sounds, no guarding, no rebound, no hepatosplenomegaly, no masses. EXTREMITIES: 2+ pulses, warm, well-perfused, no edema. NEUROLOGICAL: Cranial nerves II through XII grossly intact. Normal speech, gait not observed. PSYCH: Normal mood, normal affect. SKIN: Warm, dry, normal turgor, no rashes or lesions noted. LABS Laboratory Results - last 24 hr 11/25/17 11/25/17 11/26/17 17:53 21:21 05:25 WBC RBC Hgb Hct MCV MCH MCHC RDW Plt Count MPV Sodium Potassium Chloride Carbon Dioxide Anion Gap BUN Creatinine Creat Clearance w eGFR POC Glucometer 127.00941 168 151 Random Glucose Calcium Phosphorus Magnesium Triglycerides Cholesterol Total LDL Cholesterol HDL Cholesterol 11/26/17 11/26/17 11/26/17 05:30 05:30 06:00 WBC 5.4 RBC 4.01 Hgb 11.6 Hct 36.3 MCV 90.5 MCH 28.9 MCHC 31.9 L RDW 13.9 Plt Count 163 D MPV 8.1 Sodium 141 Potassium 4.5 Chloride 108 H Carbon Dioxide 26 Anion Gap 7 L BUN 16 Creatinine 1.1 Creat Clearance w eGFR 47.91 POC Glucometer Random Glucose 152 H Calcium 8.2 L Phosphorus 3.9 Magnesium 1.7 L Triglycerides 235 H Cancelled Cholesterol 112 Cancelled Total LDL Cholesterol 62 Cancelled HDL Cholesterol 34 L Cancelled 11/26/17 11:38 WBC RBC Hgb Hct MCV MCH MCHC RDW Plt Count MPV Sodium Potassium Chloride Carbon Dioxide Anion Gap BUN Creatinine Creat Clearance w eGFR POC Glucometer 184 Random Glucose Calcium Phosphorus Magnesium Triglycerides Cholesterol Total LDL Cholesterol HDL Cholesterol Telemetry Sinus high 40s to 60s HOSPITAL COURSE: Date of Admission:11/25/17 Date of Discharge: 11/26/17 Minutes to complete discharge: 40 Discharge Summary Reason For Visit: HYPOGLYCEMIA Hospital Course: Patient's glyburide, metformin, januvia and levemir were held. Her blood sugars were noted 120s to 160s range. She was seen by endocrinology Dr. Ingram.Diabetic/hypoglycemia education was provided to patient and in detail. She was strongly advised to eat on time, not skip meals. Also glucagon administration education and scripts were provided. Need for close home blood glucose monitoring and follow up with PCP and Dr. Ingram were recommended. She is advised to resume her levemir at 10 units, metformin and januvia if fasting sugars persistently >160 at home. Her glyburide is discontinued. In the future, she can be considered for short acting glyburide based on blood sugars. Plan, detailed education, risks of hypolycemia and need for follow up discussed with patient and . Condition: Good - Instructions Diet, Activity, Other Instructions: You were admitted with very low blood sugar. Please ensure to eat after taking your diabetes medications. Please eat on time and not to skip meals to prevent further episodes of low blood sugar. If you do not feel hungry, hold off on your diabetes pills and keep an eye on your blood sugars and discuss with your doctor. Check blood sugars before all meals and at nighttime till further seen by your doctor. MEDICATIONS: Restart Meformin and Januvia and Levemir 10 units tonight if Fasting sugar remains >160 at home. STOP Glipizide ER for now. Short prescription of glucagon has been given for you to take home Prescription sent to [facility] pharmacy on [address] Please discuss with your doctor about usage. Please give 1 mg as directed if patient either under the skin or into thigh or buttock, if patient lost consciousness in the future Call 911 right away. Try to give oral glucose as soon as able. Can repeat glucagon dose in 15 min till help available. F/u with PCP this week. Please call Dr. Ingram at [phone] with any questions until you see your PCP. Call 911 or come to ED if any low blood sugars, change in mental status or any new concerns noted. Referrals: ON STAFF,NOT [Primary Care Provider] - Briseida Ingram MD [Staff Physician] - 1 Week Disposition: HOME - Home Medications Comprehensive Discharge Medication List: Ambulatory Orders Brimonidine Tartrate/Timolol [Combigan 0.2%-0.5% Eye Drops] 5 ml OP BID Metformin HCl [Metformin HCl ER] 1,000 mg PO BID 08/01/14 Metoprolol Succinate [Toprol XL -] 50 mg PO DAILY 08/01/14 Nitroglycerin Sublingual [Nitrostat -] 0.4 mg SL PRN 08/01/14 Simvastatin [Zocor -] 40 mg PO HS 08/01/14 Sitagliptin Phosphate [Januvia] 100 mg PO DAILY 08/01/14 Acetaminophen W/ Codeine #3 [Tylenol # 3 -] 1 tab PO Q6H PRN #10 tablet Aspirin Coated [Ecotrin -] 81 mg PO DAILY 11/25/17 Donepezil HCl 10 mg PO DAILY 11/25/17 Furosemide 40 mg PO DAILY 11/25/17 Irbesartan 75 mg PO DAILY 11/25/17 Memantine HCl [Namenda Xr] 28 mg PO DAILY 11/25/17 Glucagon,Human Recombinant [Glucagon Emergency Kit] 1 mg IJ PRN PRN #5 kit 11/26 Insulin (Levemir) [Levemir Vial] 10 unit SQ DAILY #0 5ml 11/26/17 This patient is new to me today: No Emergency Visit: Yes ED Registration Date: 11/25/17 Care time: The patient presented to the Emergency Department on the above date and was hospitalized for further evaluation of their emergent condition. Critical Care patient: No - Discharge Referral Referred to [facility] Med [facility] No
[2017-11-26] MEDS ORDERED: DONEPEZIL HCL 10 MG TABLET (FP) PO SCH (22:00)
== END 2017-11-26 15:58 | disposition home or self-care (01) ==
LOC: JER 04:08 → JERBED 11:44 → J4W 21:30
PROVIDERS: ADMIT Hospitalist; ATTEND Hospitalist
PROC: 3E03329 Introduction of Other Anti-infective into Peripheral Vein, Percutaneous Approach (ICD-10-PCS; principal; 2017-11-25)
PROC: 3E0337Z Introduction of Electrolytic and Water Balance Substance into Peripheral Vein, Percutaneous Approach (ICD-10-PCS; 2017-11-25)
DX: E11.649 Type 2 diabetes mellitus with hypoglycemia without coma (principal); Z79.4 Long term (current) use of insulin; Z79.84 Long term (current) use of oral hypoglycemic drugs; I10 Essential (primary) hypertension; E78.5 Hyperlipidemia, unspecified; F03.90 Unspecified dementia, unspecified severity, without behavioral disturbance, psychotic disturbance, mood disturbance, and anxiety; I25.10 Atherosclerotic heart disease of native coronary artery without angina pectoris; Z79.82 Long term (current) use of aspirin; Z95.1 Presence of aortocoronary bypass graft
CPT/HCPCS: 36415; 70450-TC; 71045-TC-FY; 72125-TC; 80048; 80053; 80061; 81003; 81015; 82550; 82947; 82962; 83036; 83721; 83735; 83880; 84100; 84484; 85025; 85027; 85610; 85730; 86850; 86900; 86901; 87086; 87186; 93005; 93010; 96365; 96367; 99285-25; G0378; J1644; J7030

== ENCOUNTER 2019-12-16 04:35 | Emergency (ER) | payer OTHER ==
[2019-12-16 04:48] VITALS: BMI 24.7
[2019-12-16] MEDS ORDERED: METOPROLOL TARTRATE 50 MG TABLET (FP) PO ONE (12:46)
[2019-12-16] MEDS ORDERED: glipiZIDE 5 MG TABLET (FP) PO ONE (12:47)
[2019-12-16] MEDS ORDERED: glipiZIDE 5 MG TABLET (FP) ONE (13:24)
[2019-12-16] MEDS ORDERED: METOPROLOL TARTRATE 50 MG TABLET (FP) ONE (13:24)
[2019-12-16] MEDS ORDERED: sitaGLIPtin PHOSPHATE 50 MG TABLET ONE (13:25)
[2019-12-16 13:35] VITALS: BP 188/87; PULSE 67; TEMP 98.4
== END 2019-12-16 15:22 | disposition home or self-care (01) ==
LOC: JER 04:35
DX: M54.5 Low back pain (principal); Y07.01 Husband, perpetrator of maltreatment and neglect
CPT/HCPCS: 70450-TC; 72125-TC; 82962; 99285-25

== ENCOUNTER 2020-10-21 19:30 | Inpatient (IN) | payer OTHER ==
[2020-10-21] MEDS ORDERED: SODIUM CHLORIDE 0.9% 500 ML INFUS.BAG IV ONE ×2 (20:11→21:21)
[2020-10-21 20:41] LABS: BASO % 0.5 % (0-2.0); EOS % 0.4 % (0-4.5); HEMATOCRIT 33.5 % (32.4-45.2); HEMOGLOBIN 11.4 GM/dL (10.7-15.3); LYMPH % 8.1 % (8-40); MCH 30.8 pg (25.7-33.7); MCHC 33.9 g/dl (32.0-36.0); MEAN PLT VOLUME 8.5 fl (7.5-11.1); MONO % 5.7 % (3.8-10.2); NEUT % 85.3 % (42.8-82.8); PLATELET COUNT 243 10^3/uL (134-434); RBC 3.69 M/mm3 (3.60-5.2); RDW 15.3 % (11.6-15.6); WHITE BLOOD COUNT 9.8 K/mm3 (4.0-10.0)
[2020-10-21 21:04] LABS: ALBUMIN 2.3 g/dl (3.4-5.0)
[2020-10-21 21:06] LABS: CREATININE 4.2 mg/dL (0.55-1.3)
[2020-10-21 21:08] LABS: BILIRUBIN,TOTAL 3.1 mg/dL (0.2-1); TOT PROT 6.1 g/dl (6.4-8.2)
[2020-10-21 21:13] LABS: LACTIC ACID 4.7 mmol/L (0.4-2.0)
[2020-10-21 21:46] LABS: VENOUS BASE EXCESS -8.1 mmol/L (-2-2); VENOUS O2 SATURATION 66.4 % (70-80); VENOUS PCO2 38.2 mmHg (38-52); VENOUS PH 7.288 (7.310-7.410)
[2020-10-21 21:48] LABS: N-TERMINAL BNP 9215.6 pg/ml (5-450)
[2020-10-21 22:04] LABS: EPI CELLS >36 /uL (0-25.1); HYALINE CASTS 10 /uL (0-3.1); URINE APPEARANCE TURBID; URINE BACTERIA 4332 /uL (0-1359); URINE BILIRUBIN 1+ (NEGATIVE); URINE COLOR DK YELLOW; URINE GLUCOSE (UA) NEGATIVE (NEGATIVE); URINE KETONE NEGATIVE (NEGATIVE); URINE LEUK ESTERASE TRACE (NEGATIVE); URINE NITRITE NEGATIVE (NEGATIVE); URINE PROTEIN 2+ (NEGATIVE); URINE RBC 44 /uL (0-23.9); URINE WBC 45 /uL (0-25.8)
[2020-10-21] MEDS ORDERED: CEFTRIAXONE 1,000 MG in DEXTROSE 5%-WATER - 50 ML IVPB ONE (22:49)
[2020-10-21 23:38] LABS: BLOOD UREA NITROGEN 67.6 mg/dL (7-18); CALCIUM 7.9 mg/dL (8.5-10.1)
[2020-10-21 23:43] LABS: CREATININE 4.1 mg/dL (0.55-1.3)
[2020-10-21 23:48] LABS: LACTIC ACID 3.8 mmol/L (0.4-2.0)
[2020-10-22] MEDS ORDERED: ACETAMINOPHEN 325 MG TABLET (FP) PO PRN (10:22)
[2020-10-22] MEDS ORDERED: ONDANSETRON 4 MG/2 ML VIAL IVPUSH PRN (10:27)
[2020-10-22] MEDS ORDERED: CEFTRIAXONE 1 GM in DEXTROSE 5%-WATER - 50 ML IVPB SCH (10:30)
[2020-10-22] MEDS ORDERED: SODIUM CHLORIDE 1,000 ML IV SCH (10:30)
[2020-10-22] MEDS ORDERED: SODIUM CHLORIDE 500 ML IV STA ×2 (10:41→19:24)
[2020-10-22] MEDS ORDERED: DEXTROSE 5%-WATER - 50 ML IVPB ONE (11:16)
[2020-10-22] MEDS ORDERED: PT OWN MED DRAWER 7, Y5N ONE ×2 (11:16→20:50)
[2020-10-22] MEDS ORDERED: cefTRIAXone SODIUM 1 GM VIAL ONE (11:16)
[2020-10-22] MEDS: metoPROLOL SUCCINATE 25 MG TAB.SR.24H (FP) PO SCH (11:24)
[2020-10-22] MEDS: INSULIN SLIDING SCALE (NOVOLOG) 1 VIAL SQ SCH ×3 (11:51→21:02)
[2020-10-22 14:13] LABS: CALCIUM 7.7 mg/dL (8.5-10.1)
[2020-10-22 14:14] LABS: ALBUMIN 2.4 g/dl (3.4-5.0); BLOOD UREA NITROGEN 78.1 mg/dL (7-18)
[2020-10-22 14:18] LABS: BILIRUBIN,TOTAL 2.7 mg/dL (0.2-1); CREATININE 4.4 mg/dL (0.55-1.3); TOT PROT 6.4 g/dl (6.4-8.2)
[2020-10-22] MEDS ORDERED: PNEUMOC 13-VAL CONJ-DIP CRM/PF 0.5 ML DISP.SYRIN IM ONE (20:00)
[2020-10-22] MEDS: DONEPEZIL HCL 10 MG TABLET (FP) PO SCH (21:02)
[2020-10-22] MEDS: HEPARIN NA (PORCINE) 5,000 UNITS/ML 1ML VIAL SQ SCH (21:02)
[2020-10-22] MEDS: BRIMONIDINE TARTRATE 0.2% OPHTHALMIC 5 ML BOTTLE OU SCH (22:00)
[2020-10-22] MEDS: TIMOLOL 0.5% OPHTHALMIC SOL 5 ML BOTTLE OU SCH (22:00)
[2020-10-22] MEDS ORDERED: MELATONIN 5 MG TABLETS PO PRN (22:00)
[2020-10-22] MEDS ORDERED: PATIENT'S OWN MEDICATION (NON-FORMULARY) (Brimonidine Tartrate/Timolol [Combigan 0.2%-0.5% OP SCH (22:00)
[2020-10-23] MEDS ORDERED: DEXTROSE 50%-WATER - 25 GM/50 ML VIAL IVPUSH ONE (00:43)
[2020-10-23] MEDS: INSULIN SLIDING SCALE (NOVOLOG) 1 VIAL SQ SCH ×4 (06:30→21:40)
[2020-10-23] MEDS: HEPARIN NA (PORCINE) 5,000 UNITS/ML 1ML VIAL SQ SCH ×3 (06:30→21:31)
[2020-10-23] MEDS ORDERED: PIPERACILLIN/TAZOB 2.25 GM 2.25 GM in DEXTROSE 5%-WATER - 50 ML IVPB SCH ×2 (09:30→10:00)
[2020-10-23] MEDS: metoPROLOL SUCCINATE 25 MG TAB.SR.24H (FP) PO SCH (09:35)
[2020-10-23] MEDS: ASPIRIN COATED 81 MG TABLET.EC PO SCH (09:35)
[2020-10-23] MEDS: TIMOLOL 0.5% OPHTHALMIC SOL 5 ML BOTTLE OU SCH ×2 (09:36→21:31)
[2020-10-23] MEDS: BRIMONIDINE TARTRATE 0.2% OPHTHALMIC 5 ML BOTTLE OU SCH ×2 (09:36→21:30)
[2020-10-23] MEDS ORDERED: PT OWN MED DRAWER 7, Y5N ONE (09:43)
[2020-10-23 10:20] LABS: HEMATOCRIT 37.8 % (32.4-45.2); HEMOGLOBIN 12.9 GM/dL (10.7-15.3); MCH 31.3 pg (25.7-33.7); MEAN CELL VOLUME 91.9 fl (80-96); MEAN PLT VOLUME 8.8 fl (7.5-11.1); PLATELET COUNT 261 10^3/uL (134-434); RBC 4.12 M/mm3 (3.60-5.2); RDW 15.2 % (11.6-15.6); WHITE BLOOD COUNT 9.7 K/mm3 (4.0-10.0)
[2020-10-23 10:44] LABS: ALBUMIN 2.1 g/dl (3.4-5.0); BLOOD UREA NITROGEN 75.3 mg/dL (7-18); MAGNESIUM 1.9 mg/dL (1.8-2.4)
[2020-10-23 10:49] LABS: BILIRUBIN,TOTAL 2.6 mg/dL (0.2-1); PHOSPHOROUS 4.2 mg/dL (2.5-4.9); TOT PROT 5.8 g/dl (6.4-8.2)
[2020-10-23] MEDS ORDERED: DEXTROSE 5%-WATER - 50 ML IVPB ONE (16:55)
[2020-10-23] MEDS ORDERED: PIPERACILLIN/TAZOBACTAM 2.25 GM VIAL IVPB ONE (16:55)
[2020-10-23] MEDS: PIPERACILLIN/TAZOB 2.25 GM 2.25 GM in DEXTROSE 5%-WATER - 50 ML IVPB SCH (17:04)
[2020-10-23] MEDS: SODIUM CHLORIDE 0.45% 1,000 ML IV SCH (17:04)
[2020-10-23 20:49] LABS: LACTIC ACID 2.1 mmol/L (0.4-2.0)
[2020-10-23] MEDS: MIRTAZAPINE 15 MG TABLET (FP) PO SCH (21:29)
[2020-10-23] MEDS: DONEPEZIL HCL 10 MG TABLET (FP) PO SCH (21:30)
[2020-10-23] MEDS: MEMANTINE HCL 10 MG TABLET (FP) PO SCH (21:31)
[2020-10-23] MEDS ORDERED: HALOPERIDOL LACTATE 5 MG/ML IM ONE (21:44)
[2020-10-24] MEDS ORDERED: DEXTROSE 5%-WATER - 50 ML IVPB ONE ×3 (01:49→18:03)
[2020-10-24] MEDS ORDERED: PIPERACILLIN/TAZOBACTAM 2.25 GM VIAL IVPB ONE ×3 (01:49→18:03)
[2020-10-24] MEDS: PIPERACILLIN/TAZOB 2.25 GM 2.25 GM in DEXTROSE 5%-WATER - 50 ML IVPB SCH ×3 (01:57→18:07)
[2020-10-24] MEDS: SODIUM CHLORIDE 0.45% 1,000 ML IV SCH ×3 (04:41→22:41)
[2020-10-24] MEDS: HEPARIN NA (PORCINE) 5,000 UNITS/ML 1ML VIAL SQ SCH ×3 (05:15→21:54)
[2020-10-24] MEDS: INSULIN SLIDING SCALE (NOVOLOG) 1 VIAL SQ SCH ×4 (06:04→21:55)
[2020-10-24 10:57] LABS: ALBUMIN 1.9 g/dl (3.4-5.0); BILIRUBIN,TOTAL 2.4 mg/dL (0.2-1); BLOOD UREA NITROGEN 85.2 mg/dL (7-18); CREATININE 5.8 mg/dL (0.55-1.3); TOT PROT 5.3 g/dl (6.4-8.2)
[2020-10-24] MEDS: TIMOLOL 0.5% OPHTHALMIC SOL 5 ML BOTTLE OU SCH ×2 (11:49→21:55)
[2020-10-24] MEDS: BRIMONIDINE TARTRATE 0.2% OPHTHALMIC 5 ML BOTTLE OU SCH ×2 (11:49→21:54)
[2020-10-24] MEDS: metoPROLOL SUCCINATE 25 MG TAB.SR.24H (FP) PO SCH (11:49)
[2020-10-24] MEDS: MEMANTINE HCL 10 MG TABLET (FP) PO SCH ×2 (11:50→21:54)
[2020-10-24] MEDS: ASPIRIN COATED 81 MG TABLET.EC PO SCH (11:51)
[2020-10-24] MEDS: MIRTAZAPINE 15 MG TABLET (FP) PO SCH (21:53)
[2020-10-24] MEDS: DONEPEZIL HCL 10 MG TABLET (FP) PO SCH (21:54)
[2020-10-25] MEDS ORDERED: PIPERACILLIN/TAZOBACTAM 2.25 GM VIAL IVPB ONE ×3 (01:10→17:15)
[2020-10-25] MEDS ORDERED: DEXTROSE 5%-WATER - 50 ML IVPB ONE ×3 (01:10→17:15)
[2020-10-25] MEDS: PIPERACILLIN/TAZOB 2.25 GM 2.25 GM in DEXTROSE 5%-WATER - 50 ML IVPB SCH ×3 (01:13→17:45)
[2020-10-25] MEDS: INSULIN SLIDING SCALE (NOVOLOG) 1 VIAL SQ SCH ×4 (06:05→21:50)
[2020-10-25] MEDS: HEPARIN NA (PORCINE) 5,000 UNITS/ML 1ML VIAL SQ SCH (06:05)
[2020-10-25 09:22] LABS: BASO % 0.5 % (0-2.0); EOS % 1.1 % (0-4.5); HEMATOCRIT 28.6 % (32.4-45.2); HEMOGLOBIN 9.9 GM/dL (10.7-15.3); LYMPH % 5.9 % (8-40); MCH 31.2 pg (25.7-33.7); MCHC 34.5 g/dl (32.0-36.0); MEAN CELL VOLUME 90.5 fl (80-96); MEAN PLT VOLUME 8.6 fl (7.5-11.1); MONO % 5.5 % (3.8-10.2); PLATELET COUNT 161 10^3/uL (134-434); RBC 3.16 M/mm3 (3.60-5.2); RDW 15.6 % (11.6-15.6); WHITE BLOOD COUNT 10.5 K/mm3 (4.0-10.0)
[2020-10-25 09:25] LABS: VENOUS BASE EXCESS -13.1 mmol/L (-2-2); VENOUS O2 SATURATION 70.5 % (70-80); VENOUS PCO2 31.9 mmHg (38-52); VENOUS PH 7.234 (7.310-7.410)
[2020-10-25] MEDS ORDERED: PT OWN MED DRAWER 7, Y5N ONE (10:14)
[2020-10-25 10:32] LABS: CHLORIDE 98 mmol/L (98-107); SODIUM 126 mmol/L (136-145)
[2020-10-25 10:34] LABS: BLOOD UREA NITROGEN 80.7 mg/dL (7-18)
[2020-10-25 10:35] LABS: ANION GAP 18 MMOL/L (8-16); CO2 11 mmol/L (21-32); GLUCOSE,RANDOM 109 mg/dL (74-106)
[2020-10-25 10:38] LABS: CREATININE 5.2 mg/dL (0.55-1.3); SGOT/AST 147 U/L (15-37); SGPT/ALT 76 U/L (13-61)
[2020-10-25 10:39] LABS: BILIRUBIN,TOTAL 1.7 mg/dL (0.2-1); TOT PROT 3.7 g/dl (6.4-8.2)
[2020-10-25 10:42] LABS: ALBUMIN 1.1 g/dl (3.4-5.0); ALK PHOS 858 U/L (45-117); CALCIUM 5.5 mg/dL (8.5-10.1); GAMMA GLUTAMYL TRANSPEPTIDASE 1435 U/L (5-85)
[2020-10-25] MEDS ORDERED: DEXTROSE 50%-WATER 25 GM/50 ML DISP.SYRIN ONE (10:43)
[2020-10-25 11:18] LABS: ARTERIAL BLD GAS O2 SATURATION 99.8 % (95-98); ARTERIAL BLOOD GAS BASE EXCESS -10.5 mmol/L (-2-2); ARTERIAL BLOOD GAS PO2 374.9 mmHg (80-100)
[2020-10-25] MEDS: BRIMONIDINE TARTRATE 0.2% OPHTHALMIC 5 ML BOTTLE OU SCH ×2 (11:42→21:50)
[2020-10-25] MEDS: ASPIRIN COATED 81 MG TABLET.EC PO SCH (11:43)
[2020-10-25] MEDS: MEMANTINE HCL 10 MG TABLET (FP) PO SCH ×2 (11:43→21:48)
[2020-10-25] MEDS: TIMOLOL 0.5% OPHTHALMIC SOL 5 ML BOTTLE OU SCH ×2 (11:44→21:49)
[2020-10-25] MEDS: metoPROLOL SUCCINATE 25 MG TAB.SR.24H (FP) PO SCH (11:44)
[2020-10-25] MEDS: KCL 10 MEQ IVPB 10 MEQ/100 ML INFUS.BAG IVPB SCH ×2 (12:29→15:31)
[2020-10-25] MEDS ORDERED: DEXTROSE 5%-NORMAL SALINE 1,000 ML IV SCH (13:00)
[2020-10-25] MEDS ORDERED: DEXTROSE 50%-WATER - 25 GM/50 ML VIAL IVPUSH ONE (14:52)
[2020-10-25] MEDS ORDERED: SODIUM CHLORIDE 1,000 ML IV SCH (15:00)
[2020-10-25 15:20] LABS: ALBUMIN 1.5 g/dl (3.4-5.0); BILIRUBIN,TOTAL 2.3 mg/dL (0.2-1); BLOOD UREA NITROGEN 99.6 mg/dL (7-18); TOT PROT 4.8 g/dl (6.4-8.2)
[2020-10-25 15:33] LABS: BASO % 0.2 % (0-2.0); EOS % 0.9 % (0-4.5); HEMATOCRIT 32.4 % (32.4-45.2); LYMPH % 6.1 % (8-40); MCHC 33.8 g/dl (32.0-36.0); MEAN CELL VOLUME 91.6 fl (80-96); MEAN PLT VOLUME 8.7 fl (7.5-11.1); MONO % 4.5 % (3.8-10.2); NEUT % 88.3 % (42.8-82.8); PLATELET COUNT 183 10^3/uL (134-434); RBC 3.54 M/mm3 (3.60-5.2); RDW 15.5 % (11.6-15.6); WHITE BLOOD COUNT 10.8 K/mm3 (4.0-10.0)
[2020-10-25 15:56] LABS: CALCIUM 7.1 mg/dL (8.5-10.1)
[2020-10-25] MEDS ORDERED: SODIUM BICARBONATE 8.4% 50 MEQ/50 ML DISP.SYRIN IVPUSH ONE (15:57)
[2020-10-25] MEDS ORDERED: DEXTROSE 5%-0.45% SALINE 925 ML with SODIUM BICARBONATE 8.4% - 75 MEQ IV SCH (16:00)
[2020-10-25] MEDS ORDERED: SODIUM BICARBONATE 8.4% 50 MEQ/50 ML VIAL IVPUSH ONE (16:30)
[2020-10-25] MEDS: PANTOPRAZOLE SODIUM 80 MG in SODIUM CHLORIDE 100 ML IVPB SCH (17:01)
[2020-10-25] MEDS: SODIUM BICARBONATE 8.4% - 75 MEQ in DEXTROSE 5%-0.45% SALINE 925 ML IV SCH (20:09)
[2020-10-25] MEDS: DONEPEZIL HCL 10 MG TABLET (FP) PO SCH (21:48)
[2020-10-26] MEDS ORDERED: DEXTROSE 5%-WATER - 50 ML IVPB ONE ×3 (01:45→17:32)
[2020-10-26] MEDS ORDERED: PIPERACILLIN/TAZOBACTAM 2.25 GM VIAL IVPB ONE ×3 (01:45→17:32)
[2020-10-26] MEDS: PIPERACILLIN/TAZOB 2.25 GM 2.25 GM in DEXTROSE 5%-WATER - 50 ML IVPB SCH ×3 (01:54→17:35)
[2020-10-26] MEDS: PANTOPRAZOLE SODIUM 80 MG in SODIUM CHLORIDE 100 ML IVPB SCH ×3 (01:54→18:26)
[2020-10-26] MEDS: SODIUM BICARBONATE 8.4% - 75 MEQ in DEXTROSE 5%-0.45% SALINE 925 ML IV SCH ×4 (03:41→22:30)
[2020-10-26] MEDS: INSULIN SLIDING SCALE (NOVOLOG) 1 VIAL SQ SCH ×4 (06:15→22:05)
[2020-10-26] MEDS: TIMOLOL 0.5% OPHTHALMIC SOL 5 ML BOTTLE OU SCH ×2 (09:03→22:01)
[2020-10-26] MEDS: BRIMONIDINE TARTRATE 0.2% OPHTHALMIC 5 ML BOTTLE OU SCH ×2 (09:04→22:01)
[2020-10-26] MEDS: ASPIRIN COATED 81 MG TABLET.EC PO SCH (09:29)
[2020-10-26] MEDS: MEMANTINE HCL 10 MG TABLET (FP) PO SCH ×2 (09:29→22:00)
[2020-10-26 10:25] LABS: BASO % 0.5 % (0-2.0); EOS % 2.7 % (0-4.5); LYMPH % 6.7 % (8-40); MCH 31.7 pg (25.7-33.7); MCHC 34.7 g/dl (32.0-36.0); MEAN CELL VOLUME 91.4 fl (80-96); MEAN PLT VOLUME 8.8 fl (7.5-11.1); MONO % 6.8 % (3.8-10.2); NEUT % 83.3 % (42.8-82.8); PLATELET COUNT 139 10^3/uL (134-434); RBC 2.84 M/mm3 (3.60-5.2); RDW 15.4 % (11.6-15.6); RETICULOCYTES 0.65 % (0.5-1.5); WHITE BLOOD COUNT 9.2 K/mm3 (4.0-10.0)
[2020-10-26 10:48] LABS: CHLORIDE 102 mmol/L (98-107); SODIUM 135 mmol/L (136-145)
[2020-10-26 10:55] LABS: ALBUMIN 1.4 g/dl (3.4-5.0); ANION GAP 17 MMOL/L (8-16); CO2 16 mmol/L (21-32); GLUCOSE,RANDOM 243 mg/dL (74-106); SGPT/ALT 93 U/L (13-61)
[2020-10-26 10:57] LABS: BILIRUBIN,TOTAL 2.3 mg/dL (0.2-1); SGOT/AST 167 U/L (15-37); TOT PROT 4.5 g/dl (6.4-8.2)
[2020-10-26 10:58] LABS: BILIRUBIN,DIRECT 1.8 mg/dL (0.0-0.2)
[2020-10-26] MEDS: metoPROLOL SUCCINATE 25 MG TAB.SR.24H (FP) PO SCH (11:00)
[2020-10-26 11:01] LABS: BLOOD UREA NITROGEN 126.8 mg/dL (7-18); CREATININE 7.7 mg/dL (0.55-1.3)
[2020-10-26 11:10] LABS: ALK PHOS 997 U/L (45-117)
[2020-10-26] MEDS: DONEPEZIL HCL 10 MG TABLET (FP) PO SCH (22:00)
[2020-10-27] MEDS: PANTOPRAZOLE SODIUM 80 MG in SODIUM CHLORIDE 100 ML IVPB SCH ×3 (00:59→16:01)
[2020-10-27] MEDS ORDERED: PIPERACILLIN/TAZOBACTAM 2.25 GM VIAL IVPB ONE ×2 (01:25→09:28)
[2020-10-27] MEDS ORDERED: DEXTROSE 5%-WATER - 50 ML IVPB ONE ×2 (01:26→09:28)
[2020-10-27] MEDS: PIPERACILLIN/TAZOB 2.25 GM 2.25 GM in DEXTROSE 5%-WATER - 50 ML IVPB SCH ×2 (01:34→09:32)
[2020-10-27] MEDS: INSULIN SLIDING SCALE (NOVOLOG) 1 VIAL SQ SCH ×3 (06:19→16:41)
[2020-10-27] MEDS: metoPROLOL SUCCINATE 25 MG TAB.SR.24H (FP) PO SCH (09:45)
[2020-10-27] MEDS: MEMANTINE HCL 10 MG TABLET (FP) PO SCH ×2 (09:45→21:37)
[2020-10-27] MEDS: ASPIRIN COATED 81 MG TABLET.EC PO SCH (09:45)
[2020-10-27] MEDS: TIMOLOL 0.5% OPHTHALMIC SOL 5 ML BOTTLE OU SCH ×2 (11:45→21:28)
[2020-10-27] MEDS: BRIMONIDINE TARTRATE 0.2% OPHTHALMIC 5 ML BOTTLE OU SCH ×2 (11:46→21:28)
[2020-10-27] MEDS ORDERED: SODIUM BICARBONATE 8.4% - 75 MEQ in DEXTROSE 5%-0.45% SALINE 925 ML IV SCH (15:00)
[2020-10-27] MEDS: DONEPEZIL HCL 10 MG TABLET (FP) PO SCH (21:37)
[2020-10-27] MEDS: MIRTAZAPINE 15 MG TABLET (FP) PO SCH (21:37)
[2020-10-28] MEDS ORDERED: PT OWN MED DRAWER 7, Y5N ONE (09:33)
[2020-10-28] MEDS: MEMANTINE HCL 10 MG TABLET (FP) PO SCH (09:42)
[2020-10-28] MEDS: metoPROLOL SUCCINATE 25 MG TAB.SR.24H (FP) PO SCH (09:42)
[2020-10-28] MEDS: ASPIRIN COATED 81 MG TABLET.EC PO SCH (09:42)
[2020-10-28] MEDS: BRIMONIDINE TARTRATE 0.2% OPHTHALMIC 5 ML BOTTLE OU SCH ×2 (09:43→21:34)
[2020-10-28] MEDS: TIMOLOL 0.5% OPHTHALMIC SOL 5 ML BOTTLE OU SCH ×2 (09:43→21:34)
[2020-10-28] MEDS: MIRTAZAPINE 15 MG TABLET (FP) PO SCH (21:33)
[2020-10-29] MEDS: TIMOLOL 0.5% OPHTHALMIC SOL 5 ML BOTTLE OU SCH ×2 (10:26→22:05)
[2020-10-29] MEDS: BRIMONIDINE TARTRATE 0.2% OPHTHALMIC 5 ML BOTTLE OU SCH ×2 (10:26→22:04)
[2020-10-29] MEDS: metoPROLOL SUCCINATE 25 MG TAB.SR.24H (FP) PO SCH (10:26)
[2020-10-29 12:36] VITALS: BMI 18.8
[2020-10-29] MEDS: MIRTAZAPINE 15 MG TABLET (FP) PO SCH (22:04)
[2020-10-30] MEDS: BRIMONIDINE TARTRATE 0.2% OPHTHALMIC 5 ML BOTTLE OU SCH ×2 (10:13→21:40)
[2020-10-30] MEDS: TIMOLOL 0.5% OPHTHALMIC SOL 5 ML BOTTLE OU SCH ×2 (10:13→21:40)
[2020-10-30] MEDS: metoPROLOL SUCCINATE 25 MG TAB.SR.24H (FP) PO SCH (10:46)
[2020-10-30] MEDS: MIRTAZAPINE 15 MG TABLET (FP) PO SCH (21:41)
[2020-10-31] MEDS ORDERED: MORPHINE SULFATE 2 MG/ML VIAL IM PRN (09:48)
[2020-10-31] MEDS: TIMOLOL 0.5% OPHTHALMIC SOL 5 ML BOTTLE OU SCH ×2 (10:09→21:30)
[2020-10-31] MEDS: BRIMONIDINE TARTRATE 0.2% OPHTHALMIC 5 ML BOTTLE OU SCH ×2 (10:09→21:30)
[2020-10-31] MEDS: metoPROLOL SUCCINATE 25 MG TAB.SR.24H (FP) PO SCH (10:10)
[2020-10-31] MEDS ORDERED: MORPHINE ORAL CONCENTRATE 20 MG/ML - 30ML BOTTLE PO PRN (12:32)
[2020-11-01] MEDS: BRIMONIDINE TARTRATE 0.2% OPHTHALMIC 5 ML BOTTLE OU SCH ×2 (09:56→21:09)
[2020-11-01] MEDS: TIMOLOL 0.5% OPHTHALMIC SOL 5 ML BOTTLE OU SCH ×2 (09:57→21:10)
[2020-11-02 06:28] VITALS: TEMP 93.6
[2020-11-02] MEDS: TIMOLOL 0.5% OPHTHALMIC SOL 5 ML BOTTLE OU SCH ×2 (09:59→21:14)
[2020-11-02] MEDS: BRIMONIDINE TARTRATE 0.2% OPHTHALMIC 5 ML BOTTLE OU SCH ×2 (09:59→21:14)
[2020-11-02] MEDS: MORPHINE SULFATE 2 MG/ML VIAL SQ PRN ×3 (09:59→16:17)
[2020-11-03] MEDS: MORPHINE SULFATE 2 MG/ML VIAL SQ PRN ×3 (08:50→13:15)
[2020-11-03] MEDS: BRIMONIDINE TARTRATE 0.2% OPHTHALMIC 5 ML BOTTLE OU SCH (10:04)
[2020-11-03] MEDS: TIMOLOL 0.5% OPHTHALMIC SOL 5 ML BOTTLE OU SCH (10:04)
[2020-11-03 10:05] VITALS: BP 54/23; PULSE 54
[2020-11-03] MEDS ORDERED: morphine SULFATE 4 MG/ML VIAL SQ PRN (14:49)
== END 2020-11-03 19:01 | disposition expired | DRG 441 ==
LOC: JER 19:30 → JERBED 10-22 04:38 → J6S 10-22 11:07
PROVIDERS: ADMIT Internal Medicine; ATTEND Internal Medicine
DX: K76.7 Hepatorenal syndrome (principal); G93.41 Metabolic encephalopathy; K72.00 Acute and subacute hepatic failure without coma; N17.9 Acute kidney failure, unspecified; E87.2 Acidosis; N39.0 Urinary tract infection, site not specified; A09 Infectious gastroenteritis and colitis, unspecified; Z68.1 Body mass index [BMI] 19.9 or less, adult; C78.00 Secondary malignant neoplasm of unspecified lung; C78.7 Secondary malignant neoplasm of liver and intrahepatic bile duct; K92.2 Gastrointestinal hemorrhage, unspecified; E87.1 Hypo-osmolality and hyponatremia; C50.919 Malignant neoplasm of unspecified site of unspecified female breast; F03.90 Unspecified dementia, unspecified severity, without behavioral disturbance, psychotic disturbance, mood disturbance, and anxiety; E78.5 Hyperlipidemia, unspecified; I25.10 Atherosclerotic heart disease of native coronary artery without angina pectoris; R11.0 Nausea; E11.9 Type 2 diabetes mellitus without complications; K44.9 Diaphragmatic hernia without obstruction or gangrene; I95.9 Hypotension, unspecified; I10 Essential (primary) hypertension; D64.9 Anemia, unspecified; E86.1 Hypovolemia; R91.8 Other nonspecific abnormal finding of lung field; H40.9 Unspecified glaucoma; R62.7 Adult failure to thrive; R94.5 Abnormal results of liver function studies; K80.20 Calculus of gallbladder without cholecystitis without obstruction; R10.9 Unspecified abdominal pain; B96.5 Pseudomonas (aeruginosa) (mallei) (pseudomallei) as the cause of diseases classified elsewhere; Z95.5 Presence of coronary angioplasty implant and graft; Z95.1 Presence of aortocoronary bypass graft; Z66 Do not resuscitate
CPT/HCPCS: 36415; 36600; 70450-TC; 71045-TC-FY; 74176-TC; 76705-TC; 76775-TC; 80048; 80053; 80076; 81003; 82105; 82140; 82436; 82550; 82570; 82803; 82962; 82977; 83605; 83690; 83735; 83880; 84100; 84133; 84300; 84484; 85025; 85027; 85045; 86850; 86900; 86901; 87086; 87186; 87804; 90670; 93005; 93010; 97116-GP; 97162-GP; 99285-25; C9803; J1644; U0003; U0005